=== PATIENT | male | born 1960 | race Caucasian/White ===

== ENCOUNTER 2021-05-09 21:49 | Inpatient (IN) | payer OTHER ==
[~2021-05-09] VITALS: Ht 188 cm; Wt 86.6 kg
[~2021-05-09 21:49] MED LIST: ACETAMINOPHEN325 MG PO; ASCORBIC ACID500 MG PO; BIOTIN2500 MCG PO; IBUPROFEN400 M1 PO; MAG-OXIDE 400M400 MG PO; OXYCODONE-ACET1 EAC1 PO; PHOSLO667 MG PO; TUMERIC PO; ULTRA-LIGHT RO1 EACH XX; [UNRECOGNIZED DRUG - REMARK] PO
[2021-05-09 23:54] LABS: BASOPHIL 0.3 % (0-2); EOSINOPHIL 0.3 % (0-5); HCT 41.4 % (42.0-52.0); LYMPHOCYTE 7.5 % (15-48); MCHC 31.4 g/dL (32.0-36.0); MCV 85.9 fL (78.0-100.0); MONOCYTE 6.1 % (0-12); MPV 11.3 fL (6.0-9.5); NEUTROPHIL 85.5 % (41-80); NRBC 0; PLT 287 K/uL (150-400); RBC 4.82 M/uL (4.70-6.00); RDW 19.8 % (11.5-14.0); WBC 11.5 K/uL (4.0-10.5)
[2021-05-10 00:05] LABS: ALBUMIN 4.2 g/dL (3.4-5.0); BILIRUBIN - TOTAL 0.8 mg/dL (0.2-1.0); BUN/CREAT RATIO (CALC) 14.7 RATIO; CREATININE 1.02 mg/dL (0.67-1.17); POTASSIUM 4.1 mmol/L (3.5-5.1); TOTAL PROTEIN 8.2 g/dL (6.4-8.2)
[2021-05-10 04:54] LABS: BILIRUBIN NEGATIVE (NEGATIVE); BLOOD NEGATIVE Ery/uL (NEGATIVE); CLARITY CLEAR (CLEAR); COLOR YELLOW (YELLOW); GLUCOSE (U) NORMAL (NORMAL); LEUKOCYTES NEGATIVE Leu/uL (NEGATIVE); NITRITE NEGATIVE (NEGATIVE); PROTEIN NEGATIVE (NEGATIVE); UROBILINOGEN 0.2 mg/dL (0.2-1.0); pH 6.5 (5.0-9.0)
[2021-05-11 05:52] LABS: BASOPHIL 0.4 % (0-2); EOSINOPHIL 1.8 % (0-5); HCT 36.1 % (42.0-52.0); HGB 11.4 g/dl (13.2-18.0); LYMPHOCYTE 14.8 % (15-48); MCH 27.1 pg (25.0-31.0); MCHC 31.6 g/dL (32.0-36.0); MCV 85.7 fL (78.0-100.0); MONOCYTE 8.4 % (0-12); MPV 10.7 fL (6.0-9.5); NEUTROPHIL 74.4 % (41-80); NRBC 0; PLT 155 K/uL (150-400); RBC 4.21 M/uL (4.70-6.00); RDW 19.3 % (11.5-14.0); WBC 5.6 K/uL (4.0-10.5)
[2021-05-11 06:12] LABS: BILIRUBIN - TOTAL 0.5 mg/dL (0.2-1.0); BUN/CREAT RATIO (CALC) 12.7 RATIO; CREATININE 1.02 mg/dL (0.67-1.17); POTASSIUM 3.7 mmol/L (3.5-5.1)
[2021-05-11 09:26] LABS: INR 1.16 (0.9-1.2); PROTHROMBIN TIME 14.2 SECONDS (11.8-13.4)
[2021-05-11 13:24] LABS: BILIRUBIN 1+ mg/dL (NEGATIVE); BLOOD NEGATIVE Ery/uL (NEGATIVE); CLARITY CLEAR (CLEAR); COLOR YELLOW (YELLOW); GLUCOSE (U) NORMAL (NORMAL); LEUKOCYTES NEGATIVE Leu/uL (NEGATIVE); NITRITE NEGATIVE (NEGATIVE); PROTEIN NEGATIVE (NEGATIVE); SPECIFIC GRAVITY 1.025 (1.001-1.030)
[2021-05-12 08:57] LABS: HCT 35.4 % (42.0-52.0); HGB 11.3 g/dl (13.2-18.0); MCH 27.4 pg (25.0-31.0); MCHC 31.9 g/dL (32.0-36.0); MCV 85.7 fL (78.0-100.0); MPV 10.9 fL (6.0-9.5); RBC 4.13 M/uL (4.70-6.00); RDW 19.2 % (11.5-14.0); WBC 6.4 K/uL (4.0-10.5)
[2021-05-12 09:07] LABS: BUN/CREAT RATIO (CALC) 18.9 RATIO; CREATININE 1.06 mg/dL (0.67-1.17); POTASSIUM 3.9 mmol/L (3.5-5.1)
[2021-05-13 05:49] LABS: HCT 29.9 % (42.0-52.0); HGB 9.7 g/dl (13.2-18.0); MCH 27.7 pg (25.0-31.0); MCHC 32.4 g/dL (32.0-36.0); MCV 85.4 fL (78.0-100.0); RBC 3.5 M/uL (4.70-6.00); RDW 18.8 % (11.5-14.0); WBC 4.3 K/uL (4.0-10.5)
[2021-05-13 06:22] LABS: BUN/CREAT RATIO (CALC) 14.4 RATIO; CREATININE 0.9 mg/dL (0.67-1.17); POTASSIUM 3.6 mmol/L (3.5-5.1)
[2021-05-14 04:00] LABS: HCT 31.1 % (42.0-52.0); HGB 9.7 g/dl (13.2-18.0); MCH 27.2 pg (25.0-31.0); MCHC 31.2 g/dL (32.0-36.0); MCV 87.4 fL (78.0-100.0); MPV 11.3 fL (6.0-9.5); RBC 3.56 M/uL (4.70-6.00); RDW 18.5 % (11.5-14.0); WBC 3.5 K/uL (4.0-10.5)
[2021-05-14 04:07] LABS: BUN/CREAT RATIO (CALC) 11.8 RATIO; CREATININE 0.93 mg/dL (0.67-1.17); POTASSIUM 3.5 mmol/L (3.5-5.1)
[2021-05-14 10:41] LABS: INR 1.42 (0.9-1.2); PROTHROMBIN TIME 16.6 SECONDS (11.8-13.4); PTT 36.1 SECONDS (24.4-34.7)
--- NOTE | 2021-05-14 10:55 | NUR ---
phone conversation with [facility] re: TPN recommendations. regimen entered into [employer] via [employer] [facility] for further needs. fill follow POC
[2021-05-16 05:58] LABS: HGB 10.8 g/dl (13.2-18.0); MCH 27.1 pg (25.0-31.0); MCHC 31.8 g/dL (32.0-36.0); MCV 85.2 fL (78.0-100.0); MPV 10.8 fL (6.0-9.5); RBC 3.99 M/uL (4.70-6.00); RDW 17.9 % (11.5-14.0); WBC 3.5 K/uL (4.0-10.5)
[2021-05-16 06:09] LABS: BUN/CREAT RATIO (CALC) 11.1 RATIO; CREATININE 0.9 mg/dL (0.67-1.17)
[2021-05-17] MEDS ORDERED: IBUPROFEN600 MG PO (10:46)
[2021-05-17] MEDS ORDERED: COLACE100 MG PO (10:46)
[2021-05-17] MEDS ORDERED: NORCO 5-325 TA1 EACH PO (10:46)
== END 2021-05-17 17:44 | disposition home or self-care (01) | DRG 330 ==
LOC: FER 21:49 → FMS 05-10 02:21
PROVIDERS: Emergency Medicine; Hospitalist; Nurse Practitioner; Student in an Organized Health Care Education/Training Program; ADMIT Internal Medicine
PROC: 0W9G0ZZ Drainage of Peritoneal Cavity, Open Approach (ICD-10-PCS; 2021-05-11)
PROC: 0DN80ZZ Release Small Intestine, Open Approach (ICD-10-PCS; 2021-05-11)
PROC: 0DBF0ZZ Excision of Right Large Intestine, Open Approach (ICD-10-PCS; principal; 2021-05-11 10:30)
DX: C18.0 Malignant neoplasm of cecum (principal); R18.8 Other ascites; K56.7 Ileus, unspecified; D61.09 Other constitutional aplastic anemia; K66.0 Peritoneal adhesions (postprocedural) (postinfection); G47.33 Obstructive sleep apnea (adult) (pediatric); Z20.822 Contact with and (suspected) exposure to COVID-19; Z99.81 Dependence on supplemental oxygen; Z79.899 Other long term (current) drug therapy; Z98.890 Other specified postprocedural states; Z80.52 Family history of malignant neoplasm of bladder; Z80.0 Family history of malignant neoplasm of digestive organs
CPT/HCPCS: 36415; 74018; 80048; 80053; 81003; 82150; 82378; 83690; 83735; 84100; 85025; 85610; 85730; 93005; 94010; C9113; J0690; J1100; J1170; J1642; J1650; J1885; J2270; J2405; J2704; J2710; J2765; J3010; J3360; J3475; J3480; J7030; J7120; Q9967; U0002

== ENCOUNTER → 2021-08-12 | Day surgery (SDC) | payer OTHER ==
[~2021-08-12] VITALS: Ht 188 cm; Wt 83.9 kg
[~2021-08-12] MED LIST changes: +COLACE100 MG PO; +IBUPROFEN600 MG PO; +MVI PO; +NORCO 5-325 TA1 EACH PO
== END | disposition home or self-care (01) ==
LOC: FAS 08:10
DX: C18.9 Malignant neoplasm of colon, unspecified (principal); K21.9 Gastro-esophageal reflux disease without esophagitis; D50.9 Iron deficiency anemia, unspecified; D61.9 Aplastic anemia, unspecified; G47.30 Sleep apnea, unspecified; F41.9 Anxiety disorder, unspecified; G89.29 Other chronic pain; R10.31 Right lower quadrant pain; Z90.49 Acquired absence of other specified parts of digestive tract; Z80.0 Family history of malignant neoplasm of digestive organs; Z80.52 Family history of malignant neoplasm of bladder; Z72.89 Other problems related to lifestyle; Z79.899 Other long term (current) drug therapy
CPT/HCPCS: J2704; J7120